=== PATIENT | male | born 1980 | race African-American/Black ===

== ENCOUNTER 2017-07-07 20:49 | Emergency (ER) | payer OTHER ==
[~2017-07-07] VITALS: Ht 180.3 cm; Wt 79.2 kg
[2017-07-07 22:24] VITALS: BP 100/67
== END 2017-07-07 22:24 | disposition home or self-care (01) ==
LOC: EME 20:49
DX: S33.9XXA Sprain of unspecified parts of lumbar spine and pelvis, initial encounter (principal); V89.2XXA Person injured in unspecified motor-vehicle accident, traffic, initial encounter; B20 Human immunodeficiency virus [HIV] disease
CPT/HCPCS: 72100; 99281; 99283